=== PATIENT | female | born 1960 | race Caucasian/White ===

== ENCOUNTER 2017-08-04 14:56 | Outpatient (CLI) | payer OTHER | END 2017-08-04 14:57 | disposition home or self-care (01) | LOC: BICMAMMO 14:56 | PROVIDERS: ATTEND Obstetrics & Gynecology | DX: Z12.31 Encounter for screening mammogram for malignant neoplasm of breast (principal); R92.1 Mammographic calcification found on diagnostic imaging of breast | CPT/HCPCS: 77063; 77067 ==

== ENCOUNTER 2017-09-23 16:40 | Outpatient (CLI) | payer OTHER | END 2017-09-23 16:41 | disposition home or self-care (01) | LOC: BICRAD 16:40 | PROVIDERS: ATTEND Family Medicine | DX: M79.672 Pain in left foot (principal); M19.072 Primary osteoarthritis, left ankle and foot ==

== ENCOUNTER 2018-08-05 14:55 | Outpatient (CLI) | payer BC ==
--- NOTE | 2018-08-05 16:43 | BD ---
Exam: DEXA Bone Density 08/05/17 HISTORY: Postmenopausal screening for osteoporosis. FINDINGS: Lumbar Spine: BMD (g/cm2) T-Score: Z-Score: L1 0.899 -0.8 0.4 L2 0.897 -1.2 0.2 L3 1.027 -0.5 0.9 L4 1.054 -0.1 1.4 L1-L4 0.975 -0.7 0.7 Femoral Neck: 0.455 -3.6 -2.3 Total Femur: 0.564 -3.1 -2.0 Impression: Osteoporosis. POS: C
== END 2018-08-05 14:56 | disposition home or self-care (01) ==
LOC: BICMAMMO 14:55
PROVIDERS: ATTEND Obstetrics & Gynecology
DX: Z12.31 Encounter for screening mammogram for malignant neoplasm of breast (principal); Z13.820 Encounter for screening for osteoporosis; R92.1 Mammographic calcification found on diagnostic imaging of breast; Z80.3 Family history of malignant neoplasm of breast
CPT/HCPCS: 77063; 77067; 77080

== ENCOUNTER 2019-05-02 12:29 | Outpatient (CLI) | payer BC ==
--- NOTE | 2019-05-02 13:03 | RAD ---
RIGHT HIP TWO VIEWS: 05/02/2019 HISTORY: Hip pain. COMPARISON: None. FINDINGS: There is mild superior joint space narrowing. There is mild lateral acetabular osteophyte formation. There is lower lumbar spine degenerative change, most prominent on the right, at L3-L4 with disk spac e narrowing, sclerotic endplate change and lateral osteophyte formation. IMPRESSION: Degenerative change as detailed above. No acute osseous abnormality. POS: [facility]
== END 2019-05-02 12:30 | disposition home or self-care (01) ==
LOC: BICRAD 12:29
PROVIDERS: ATTEND Internal Medicine
DX: M25.551 Pain in right hip (principal); M16.11 Unilateral primary osteoarthritis, right hip; M47.816 Spondylosis without myelopathy or radiculopathy, lumbar region

== ENCOUNTER 2019-08-07 10:48 | Outpatient (CLI) | payer BC ==
--- NOTE | 2019-08-07 13:00 | BD ---
BONE DENSITOMETRY: INDICATION: Postmenopausal osteoporosis screening. FINDINGS: Lumbar Spine: BMD (g/cm2) L1 0.903 T-Score: -0.8 L2 0.899 T-Score: -1.2 L3 1.091 T-Score: 0.1 L4 1.031 T-Score: -0.3 L1-L4 0.983 T-Score: -0.6 Femoral Neck: 0.424 T-Score: -3.8 Total Femur: 0.626 T-Score: -2.6 Impression: 1. Bone mineral density of the femoral neck indicates osteoporosis. 2. Bone mineral density of the lumbar spine within normal range. POS: [facility]
== END 2019-08-07 10:49 | disposition home or self-care (01) ==
LOC: BICMAMMO 10:48
PROVIDERS: ATTEND Obstetrics & Gynecology
DX: Z13.820 Encounter for screening for osteoporosis (principal); M81.0 Age-related osteoporosis without current pathological fracture
CPT/HCPCS: 77080

== ENCOUNTER 2020-04-26 14:57 | Outpatient (CLI) | payer BC ==
--- NOTE | 2020-04-26 15:26 | RAD ---
XR Shoulder Rt 3 View STANDARD History: Pain Comparison: None. Findings: No acute fracture or malalignment. Subacromial acute enthesophyte is present. Large cloudli ke calcifications project over the subacromial/subdeltoid bursa. Visualized ribs are intact. Impression: Calcific bursitis of the right shoulder.
== END 2020-04-26 14:58 | disposition home or self-care (01) ==
LOC: BICRAD 14:57
PROVIDERS: ATTEND Physician Assistant
DX: M25.511 Pain in right shoulder (principal); M75.51 Bursitis of right shoulder

== ENCOUNTER 2020-10-17 12:09 | Outpatient (CLI) | payer BC | END 2020-10-17 12:10 | disposition home or self-care (01) | LOC: BICRAD 12:09 | PROVIDERS: ATTEND Internal Medicine Rheumatology | DX: M25.551 Pain in right hip (principal); M25.562 Pain in left knee; M79.672 Pain in left foot; M54.5 Low back pain; G89.29 Other chronic pain; M19.072 Primary osteoarthritis, left ankle and foot; M47.816 Spondylosis without myelopathy or radiculopathy, lumbar region; M17.12 Unilateral primary osteoarthritis, left knee; M81.0 Age-related osteoporosis without current pathological fracture | CPT/HCPCS: 72100 ==

== ENCOUNTER 2021-08-06 11:15 | Outpatient (CLI) | payer BC | END 2021-08-06 11:16 | disposition home or self-care (01) | LOC: BICMAMMO 11:15 | PROVIDERS: ATTEND Internal Medicine | DX: Z12.31 Encounter for screening mammogram for malignant neoplasm of breast (principal) | CPT/HCPCS: 77063; 77067 ==

== ENCOUNTER 2021-11-24 13:37 | Outpatient (CLI) | payer BC | END 2021-11-24 13:38 | disposition home or self-care (01) | LOC: RAD 13:37 | PROVIDERS: ATTEND Internal Medicine | DX: R05.9 Cough, unspecified (principal) | CPT/HCPCS: 71046 ==